=== PATIENT | female | born 1935 | race Caucasian/White ===

== ENCOUNTER → 2016-06-12 12:41 | Outpatient (CLI) | payer MEDICARE, BC | END | disposition home or self-care (01) | LOC: D.CT 06-09 11:30 | DX: Z12.31 Encounter for screening mammogram for malignant neoplasm of breast (principal); M79.9 Soft tissue disorder, unspecified ==

== ENCOUNTER → 2017-09-19 18:41 | Outpatient (CLI) | payer MEDICARE, BC | END | disposition home or self-care (01) | LOC: D.MAMMO 11:15 | DX: Z12.31 Encounter for screening mammogram for malignant neoplasm of breast (principal) ==